=== PATIENT | male | born 1950 | race Two or more races ===

== ENCOUNTER 2019-12-09 19:24 | Emergency (ER) | payer MEDICARE, OTHER ==
[2019-12-09 19:48] VITALS: BP 176/91
[2019-12-09] MEDS ORDERED: OXYCODONE-ACETAMINOPHEN 5-325 MG TABLET PO ONE (19:55)
--- NOTE | 2019-12-09 19:58 | ER Document Report ---
ED Medical Screen (RME) - General Chief Complaint: Animal Bite Stated Complaint: HAND INJURY Time Seen by Provider: 12/09/19 19:48 - HPI Notes: 12/09/19 19:58 69-year-old male to the emergency department with complaints of right hand pain. States he was fishing when he got stung by a stingray. He stated with back and stung him with the marvin of its tail. He states his been bleeding and it is extremely painful. He is right-hand dominant. He is not up-to-date on his tetanus shot. He denies any other injuries. I performed a brief medical screening exam on the patient determined that the patient needs further evaluation and management by main side provider. I have placed initial orders to help expedite care. - Related Data Allergies/Adverse Reactions: No Known Drug Allergies Allergy (Verified 12/09/19 19:54) Physical Exam - Vital signs Vitals: Temp Pulse Resp BP Pulse Ox 97.6 F 85 18 176/91 H 98 12/09/19 19:46 12/09/19 19:46 12/09/19 19:46 12/09/19 19:46 12/09/19 19:46 Course - Vital Signs Vital signs: Temp Pulse Resp BP Pulse Ox 97.6 F 85 18 176/91 H 98 12/09/19 19:46 12/09/19 19:46 12/09/19 19:46 12/09/19 19:46 12/09/19 19:46
[2019-12-09] MEDS ORDERED: DIPH/PERTUSS(ACELL)/TETANUS VAC/PF 0.5 ML SYR (>=10YO) IM ONE (19:59)
--- NOTE | 2019-12-09 20:32 | RADIOLOGY REPORT (SQ) ---
CLINICAL INDICATION: sting ray puncture, hand pain. . TECHNIQUE: 3 view(s) were obtained of the right hand. COMPARISON: None. FINDINGS: No acute displaced fracture is identified of the hand. Alignment appears anatomic. Joint spaces are within normal limits for age. Soft tissue swelling. No retained radiopaque foreign body is identified.. IMPRESSION: No evidence of acute bony injury to the hand.
[2019-12-09 21:19] LABS: ABSOLUTE LYMPHOCYTES (AUTO) 0.8 10^3/uL (0.5-4.7); ABSOLUTE MONOCYTES (AUTO) 0.8 10^3/uL (0.1-1.4); ABSOLUTE NEUT (AUTO) 13.7 10^3/uL (1.7-8.2); BASOPHILS % (AUTO) 0.3 % (0-2); EOSINOPHILS % (AUTO) 0.2 % (0-6); HEMATOCRIT 48.6 % (37.9-51.0); HEMOGLOBIN 16.7 g/dL (13.5-17.0); LYMPHOCYTES % (AUTO) 5.4 % (13-45); MEAN CORPUSCULAR HEMOGLOBIN 33.7 pg (27.0-33.4); MEAN CORPUSCULAR HGB CONC 34.4 g/dL (32.0-36.0); MEAN CORPUSCULAR VOLUME 98 fl (80-97); MONOCYTES % (AUTO) 5.2 % (3-13); PLATELET COUNT 209 10^3/uL (150-450); RED BLOOD COUNT 4.97 10^6/uL (4.35-5.55); RED CELL DISTRIBUTION WIDTH 14.1 % (11.5-14.0); SEGMENTED NEUTROPHILS % (AUTO) 88.9 % (42-78); TOTAL CELLS COUNTED % (AUTO) 100 %; WHITE BLOOD COUNT 15.4 10^3/uL (4.0-10.5)
[2019-12-09 21:27] LABS: ANION GAP 12 (5-19); BLOOD UREA NITROGEN 15 mg/dL (7-20); CALCIUM 9.8 mg/dL (8.4-10.2); CARBON DIOXIDE 25 mmol/L (22-30); CHLORIDE 101 mmol/L (98-107); GLUCOSE 136 mg/dL (75-110); POTASSIUM 4.1 mmol/L (3.6-5.0)
[2019-12-10] MEDS ORDERED: DOXYCYCLINE HYCLATE 100 MG TABLET PO ONE (00:46)
[2019-12-10] MEDS ORDERED: HYDROCODONE/ACETAMINOPHEN 5-325 MG (6 TAB/ER DISP) PO PRN (00:46)
--- NOTE | 2019-12-10 00:48 | ER Document Report ---
HPI - HPI Time Seen by Provider: 12/10/19 00:45 Onset: Yesterday Onset/Duration: Sudden Quality of pain: Achy Pain Level: 1 Context: Patient states that he got punctured in the right hand by a stingray yesterday afternoon. Patient with puncture wound to right hand. Patient states he was given pain medication the pain is improved at this time. Associated Symptoms: Other - Right hand pain. denies: Fever, Nausea, Vomiting Exacerbated by: Movement Relieved by: Denies Similar symptoms previously: No Recently seen / treated by doctor: No - ROS ROS below otherwise negative: Yes Systems Reviewed and Negative: Yes All other systems reviewed and negative - CONSTITUTIONAL Constitutional: DENIES: Fever, Chills - NEURO Neurology: DENIES: Weakness - GASTROINTESTINAL Gastrointestinal: DENIES: Nausea, Patient vomiting - MUSCULOSKELETAL Musculoskeletal: REPORTS: Extremity pain, Swelling - DERM Skin Color: Normal Skin Problems: Puncture Wound Past Medical History - General Information source: Patient - Social History Smoking Status: Former Smoker Frequency of alcohol use: Occasional Drug Abuse: None Lives with: Family Family History: Reviewed & Not Pertinent - Past Medical History Cardiac Medical History: Reports: Hx Hypercholesterolemia, Hx Hypertension Endocrine Medical History: Reports: Hx Hypothyroidism Surgical Hx: Negative Vertical Provider Document - CONSTITUTIONAL Agree With Documented VS: Yes Exam Limitations: No Limitations General Appearance: WD/WN, No Apparent Distress - HEENT HEENT: Atraumatic, Normocephalic - NECK Neck: Normal Inspection - RESPIRATORY Respiratory: Breath Sounds Normal, No Respiratory Distress - CARDIOVASCULAR Cardiovascular: Regular Rate, Regular Rhythm Pulses: Normal: Radial - MUSCULOSKELETAL/EXTREMETIES Musculoskeletal/Extremeties: MAEW, FROM, Tender - Tenderness to the dorsum of the right hand with mild swelling, no surrounding erythema - NEURO Level of Consciousness: Awake, Alert, Appropriate Motor/Sensory: No Motor Deficit, No Sensory Deficit - DERM Integumentary: Warm, Dry Notes: Puncture wound to the dorsum of the right hand Course - Re-evaluation Re-evalutation: 12/10/19 01:15 Patient with mild leukocytosis although no retained foreign body, will place patient on empiric antibiotic treatment after a marine puncture wound. Patient's tetanus immunization has been updated. Good return precautions discussed with patient. Patient verbalized understanding and is agreeable with discharge plan of care. - Vital Signs Vital signs: Temp Pulse Resp BP Pulse Ox 97.6 F 85 18 176/91 H 98 12/09/19 19:46 12/09/19 19:46 12/09/19 19:46 12/09/19 19:46 12/09/19 19:46 - Laboratory Result Diagrams: 12/09/19 20:55 12/09/19 20:55 Laboratory results interpreted by me: 12/09/19 12/09/19 20:55 20:55 WBC 15.4 H MCV 98 H MCH 33.7 H RDW 14.1 H Lymph % (Auto) 5.4 L Absolute Neuts (auto) 13.7 H Seg Neutrophils % 88.9 H Glucose 136 H - Diagnostic Test Radiology reviewed: Reports reviewed Discharge - Discharge Clinical Impression: Marine animal sting Qualifiers: Encounter type: initial encounter Injury intent: undetermined intent Qualified Code(s): T63.694A - Toxic effect of contact with other venomous marine animals, undetermined, initial encounter Puncture wound, hand Qualifiers: Encounter type: initial encounter Foreign body presence: without foreign body Laterality: right Qualified Code(s): S61.431A - Puncture wound without foreign body of right hand, initial encounter Condition: Stable Disposition: HOME, SELF-CARE Instructions: Doxycycline ([facility]), Marine Puncture Envenomation ([facility]), Tetanus Immunization Given ([facility]) Additional Instructions: Return immediately for any new or worsening symptoms: Fever, redness, increased pain, increased swelling or any concerning new symptoms Followup with your primary care provider, call tomorrow to make a followup appointment Prescriptions: Doxycycline Hyclate [Vibramycin] 100 mg PO BID #20 capsule Referrals: NICA HANSEN PA-C [Primary Care Provider] - Follow up as needed
[2019-12-10] MEDS ORDERED: DIPH/PERTUSS(ACELL)/TETANUS VAC/PF 0.5 ML SYR (>=10YO) IM ONE (01:24)
== END 2019-12-10 01:35 | disposition home or self-care (01) ==
LOC: ER 19:24
DX: Z23 Encounter for immunization (principal); T63.6 Toxic effect of contact with other venomous marine animals; M79.641 Pain in right hand; M79.89 Other specified soft tissue disorders; Z87.891 Personal history of nicotine dependence; I10 Essential (primary) hypertension
CPT/HCPCS: 99284; 90471; 36415; 85025; 80048; 73130; 90715; A9270 ×3